=== PATIENT | male | born 1985 | race Caucasian/White ===

== ENCOUNTER 2017-04-11 00:46 | Emergency (ER) | payer SELFPAY ==
[~2017-04-11] VITALS: Ht 172.7 cm; Wt 68.0 kg
[2017-04-11 00:50] VITALS: BP_SYST 118
[2017-04-11 01:28] LABS: BASOPHILS # (AUTO) 0.1 K/uL (0.0-0.2); BASOPHILS % (AUTO) 0.9 % (0.0-2.0); EOSINOPHILS # (AUTO) 0.1 K/uL (0.0-0.4); EOSINOPHILS % (AUTO) 1.7 % (0.0-4.0); HEMOGLOBIN 14.5 g/dL (14.0-18.0); MEAN CORPUSCULAR HEMOGLOBIN 32 pg (27-31); MEAN CORPUSCULAR HGB CONC 33 % (32-36); MEAN CORPUSCULAR VOLUME 96 fL (79.0-98.0); MONOCYTES # (AUTO) 0.8 K/uL (0.0-1.0); MONOCYTES % (AUTO) 11.8 % (1.7-9.3); NEUTROPHILS # (AUTO) 2.9 K/uL (1.8-7.7); NEUTROPHILS % (AUTO) 41.6 % (40.0-70.0); PLATELET COUNT (AUTO) 233 K/uL (130-430); RED BLOOD CELL COUNT(AUTO) 4.57 MIL/uL (4.2-6.2); RED CELL DISTRIBUTION WIDTH 15.9 % (9.0-15.0); WHITE BLOOD COUNT (AUTO) 6.9 K/uL (4.8-10.8)
[2017-04-11 01:37] LABS: PROTHROMBIN TIME 10.4 SECS (9.5-12.5)
[2017-04-11 02:08] LABS: ANION GAP 13 (5-15); CALCIUM 8.9 mg/dL (8.4-11.0); CHLORIDE 105 mmol/L (98-107); CREATININE 0.62 mg/dL (0.55-1.30); GLUCOSE 101 mg/dL (70-99); POTASSIUM 3.2 mmol/L (3.5-5.1); SODIUM SERUM 143 mmol/L (136-145); UREA NITROGEN, BLOOD 11 mg/dL (8-21)
[2017-04-11 02:13] LABS: CREATINE KINASE, TOTAL 167 U/L (39-308); SALICYLATE 1 mg/dL (3-30)
[2017-04-11 02:17] LABS: GFR AFRICAN AMERICAN 192 mL/min (>90)
[2017-04-11 02:19] LABS: ACETAMINOPHEN < 1 ug/mL (1-30); ALCOHOL, BLOOD 467 mg/dL (<10)
[2017-04-11 02:27] LABS: BILIRUBIN,URINE NEGATIVE (NEGATIVE); BLOOD, URINE NEGATIVE (NEGATIVE); CLARITY/URINE CLEAR (CLEAR); COLOR,URINE YELLOW (YELLOW); GLUCOSE,URINE NEGATIVE (NEGATIVE); KETONES,URINE TRACE (NEGATIVE); LEUKOCYTE ESTERASE ,URINE NEGATIVE (NEGATIVE); NITRITE, URINE NEGATIVE (NEGATIVE); PH,URINE 5.5 (5.0-8.0); PROTEIN URINE NEGATIVE (NEGATIVE)
[2017-04-11 02:37] LABS: BARBITURATE, URINE NEGATIVE (NEG <=200); BENZODIAZEPINE, URINE NEGATIVE (NEG <=150); CANNABINOID, URINE POSITIVE (NEG <=50); COCAINE, URINE NEGATIVE (NEG <=150); METHAMPHETAMINES SCREEN,URINE NEGATIVE (NEG <=500); OPIATE, URINE NEGATIVE (NEG <=100); PHENCYCLIDINE SCREEN,URINE NEGATIVE (NEG <=25); UR TRICYCLIC ANTIDEPRESSANTS NEGATIVE (NEG <=300); URINE AMPHETAMINE NEGATIVE (NEG <=500); URINE METHADONE NEGATIVE (NEG <=200); URINE OXYCODONE SCREEN NEGATIVE (NEG <=100); URINE PROPOXYPHENE SCREEN NEGATIVE (NEG <=300)
[2017-04-11] MEDS ORDERED: BANANA BAG 1 EA, MVI 10 ML, THIAMINE HCL 100 MG, FOLIC ACID 1 MG, MAGNESIUM SULFATE 1 G... IV SCH ×5 (04:45)
[2017-04-11] MEDS ORDERED: MVI 10 ML VIAL IV ONE (05:22)
[2017-04-11] MEDS ORDERED: THIAMINE HCL 100 MG/ML VIAL ONE (05:23)
[2017-04-11] MEDS ORDERED: FOLIC ACID 5 MG/ML VIAL IV ONE (05:24)
[2017-04-11] MEDS ORDERED: MAGNESIUM SULFATE 1 GM/2 ML VIAL ONE (05:25)
[2017-04-11] MEDS ORDERED: FOLIC ACID 1 MG, THIAMINE HCL 100 MG, MAGNESIUM SULFATE 1 GM, MVI 10 ML in NACL 0.9% 1,... IV ONE (05:30)
[2017-04-11 08:33] VITALS: BP_SYST 111
[2017-04-12] MEDS ORDERED: BANANA BAG 1 EA, MVI 10 ML, THIAMINE HCL 100 MG, FOLIC ACID 1 MG, MAGNESIUM SULFATE 1 G... IV ONE ×5 (04:45)
== END 2017-04-11 08:33 | disposition home or self-care (01) ==
LOC: SED 00:46
DX: F10.129 Alcohol abuse with intoxication, unspecified (principal)
CPT/HCPCS: 36415; 70450; 80048; 80307; 81003; 82550; 84484; 85025; 85610; 85730; 93005; 99285; G0480; G0481; G0482; J3411; J3475; J3490; J7030

== ENCOUNTER 2017-05-03 17:58 | Emergency (ER) | payer SELFPAY ==
[~2017-05-03] VITALS: Ht 175.3 cm; Wt 70.3 kg
[2017-05-03 17:58] VITALS: BP_SYST 110
[2017-05-03 20:15] LABS: EOSINOPHILS # (AUTO) 0.1 K/uL (0.0-0.4); HEMOGLOBIN 12.3 g/dL (14.0-18.0); LYMPHOCYTES # (AUTO) 1.9 K/uL (1.0-5.5); MEAN CORPUSCULAR HEMOGLOBIN 33 pg (27-31); MEAN CORPUSCULAR HGB CONC 34 % (32-36); MEAN CORPUSCULAR VOLUME 99 fL (79.0-98.0); MONOCYTES # (AUTO) 0.6 K/uL (0.0-1.0); NEUTROPHILS # (AUTO) 1.4 K/uL (1.8-7.7)
[2017-05-03 20:18] LABS: BASOPHILS % (AUTO) 0.9 % (0.0-2.0); EOSINOPHILS % (AUTO) 1.5 % (0.0-4.0); HEMATOCRIT 36.5 % (36-54); LYMPHOCYTES % (AUTO) 46.7 % (20.5-51.5); MONOCYTES % (AUTO) 15.6 % (1.7-9.3); NEUTROPHILS % (AUTO) 35.3 % (40.0-70.0); PLATELET COUNT (AUTO) 244 K/uL (130-430); RED BLOOD CELL COUNT(AUTO) 3.68 MIL/uL (4.2-6.2)
[2017-05-03 20:32] LABS: CALCIUM 7.6 mg/dL (8.4-11.0); CREATININE 0.58 mg/dL (0.55-1.30); POTASSIUM 3.2 mmol/L (3.5-5.1)
[2017-05-03 20:35] LABS: PROTHROMBIN TIME 10.9 SECS (9.5-12.5)
[2017-05-03 20:39] LABS: TOTAL BILIRUBIN 0.2 mg/dL (0.0-1.0)
[2017-05-03 20:42] LABS: ALBUMIN 2.7 g/dL (3.4-4.8)
[2017-05-03] MEDS ORDERED: KCL 40 mEq in 100 mL (PREMIX) 100 ML IV ONE (20:45)
[2017-05-03] MEDS ORDERED: 0.45% NACL 1,000 ML IV ONE (20:45)
[2017-05-03] MEDS ORDERED: KCL 20 mEq in 100 mL (PREMIX) 100 ML IV ONE ×3 (21:15)
[2017-05-03 21:45] LABS: BILIRUBIN,URINE NEGATIVE (NEGATIVE); BLOOD, URINE NEGATIVE (NEGATIVE); CLARITY/URINE CLEAR (CLEAR); COLOR,URINE YELLOW (YELLOW); GLUCOSE,URINE NEGATIVE (NEGATIVE); KETONES,URINE NEGATIVE (NEGATIVE); LEUKOCYTE ESTERASE ,URINE NEGATIVE (NEGATIVE); NITRITE, URINE NEGATIVE (NEGATIVE); PROTEIN URINE NEGATIVE (NEGATIVE); UROBILINOGEN,URINE 0.2 (0.2-1.0)
[2017-05-03 21:57] LABS: BARBITURATE, URINE NEGATIVE (NEG <=200); BENZODIAZEPINE, URINE POSITIVE (NEG <=150); CANNABINOID, URINE POSITIVE (NEG <=50); COCAINE, URINE NEGATIVE (NEG <=150); METHAMPHETAMINES SCREEN,URINE NEGATIVE (NEG <=500); OPIATE, URINE NEGATIVE (NEG <=100); PHENCYCLIDINE SCREEN,URINE NEGATIVE (NEG <=25); UR TRICYCLIC ANTIDEPRESSANTS NEGATIVE (NEG <=300); URINE AMPHETAMINE NEGATIVE (NEG <=500); URINE METHADONE NEGATIVE (NEG <=200); URINE OXYCODONE SCREEN NEGATIVE (NEG <=100); URINE PROPOXYPHENE SCREEN NEGATIVE (NEG <=300)
[2017-05-04 00:12] LABS: CALCIUM 7.2 mg/dL (8.4-11.0); CREATININE 0.65 mg/dL (0.55-1.30); POTASSIUM 3.4 mmol/L (3.5-5.1)
[2017-05-04 01:32] VITALS: BP_SYST 122
== END 2017-05-04 01:32 | disposition home or self-care (01) ==
LOC: SED 17:58
DX: F10.129 Alcohol abuse with intoxication, unspecified (principal)
CPT/HCPCS: 36415; 71010; 80048; 80053; 80307; 81003; 82140; 83880; 84439; 84484; 85025; 85610; 87040; 93005; 96365; 99285; G0482; J3480